=== PATIENT | female | born 2000 | race African-American/Black ===

== ENCOUNTER 2021-08-27 06:23 | Emergency (ER) | payer OTHER ==
[~2021-08-27] VITALS: Ht 170.2 cm; Wt 54.0 kg
[2021-08-27 06:37] VITALS: BP 126/76
[2021-08-27 07:12] LABS: COVID AG,FIA SOURCE NASOPHARYNGEAL
[2021-08-27 07:55] LABS: INFLUENZA TYPE A NEGATIVE FOR TYPE A (NEGATIVE); INFLUENZA TYPE B NEGATIVE FOR TYPE B (NEGATIVE)
== END 2021-08-27 08:51 | disposition left against medical advice (07) ==
LOC: EMS 06:24
DX: U07.1 COVID-19 (principal)
CPT/HCPCS: 87804; 99283

== ENCOUNTER 2022-01-13 00:50 | Emergency (ER) | payer OTHER ==
[~2022-01-13] VITALS: Ht 162.6 cm; Wt 61.4 kg
[2022-01-13 02:35] VITALS: BP 114/65
[2022-01-13] MEDS ORDERED: HYDROCODONE/ACETAMINOPHEN 5-325 MG TABLET PO ONE (03:00)
[2022-01-13] MEDS ORDERED: AMOX250C4 PO ×2 (03:11→16:51)
== END 2022-01-13 04:54 | disposition home or self-care (01) ==
LOC: EMS 00:54
DX: K08.89 Other specified disorders of teeth and supporting structures (principal)
CPT/HCPCS: 99283